=== PATIENT | male | born 1960 | race Caucasian/White ===

== ENCOUNTER 2017-02-07 11:26 | Day surgery (SDC) | payer OTHER ==
[2017-02-07] MEDS ORDERED: MIDAZOLAM HCL 2 MG/2 ML VIAL ONE (12:40)
[2017-02-07] MEDS ORDERED: MUPIROCIN 2% OINT 1 APPLIC/GM SYR NASAL SCH (13:15)
[2017-02-07] MEDS ORDERED: CHLORHEXIDINE GLUCONATE 2 % 1 PACK (2 CLOTHS) TOPICAL SCH (13:15)
[2017-02-07] MEDS ORDERED: POVIDONE IODINE 5% (ANTISEPSIS KIT) 4 APPLICATIONS EACH NARE SCH (13:15)
[2017-02-07] MEDS ORDERED: ceFAZolin 2 GM PREMIX 50 ML IV SCH (13:15)
--- NOTE | 2017-02-07 14:47 | MR ---
cc: JARETT LIN MD DATE: 02/07/[address] Jarett Lin. PREPROCEDURE DIAGNOSIS CVA. PROCEDURE PERFORMED Loop recorder insertion. DESCRIPTION OF PROCEDURE The patient was brought to the DOC unit in postabsorptive state, after informed consent was obtained, a [employer] LINQ loop recorder was inserted subcutaneous in the left chest. The patient tolerated the procedure well without any apparent complications. Tachybrady pause and atrial fibrillation detector was enabled. Initial R-wave was 0.35 mV. The serial number was [id number]. MD WILLIAM Kelly/ANKUR /1:26 PM /2:35 PM
== END 2017-02-07 14:00 | disposition home or self-care (01) ==
LOC: HCAT 11:26 → HDIC 11:38 → HCAT 14:00
PROVIDERS: ATTEND Nuclear Medicine Nuclear Cardiology
DX: I47.1 Supraventricular tachycardia (principal); I10 Essential (primary) hypertension; E78.5 Hyperlipidemia, unspecified
CPT/HCPCS: 33282; C1764; J0690; J2250; J3010